=== PATIENT | male | born 1995 | race Caucasian/White ===

== ENCOUNTER → 2018-01-03 | Outpatient (CLI) | payer BC ==
[~2018-01-03] MED LIST: MOTRIN 600600 MG/TAB PO; NORCO 325 MG-51 TAB PO; PERCOCET 325 MG1 TA2 PO
== END ==
LOC: COL.RAD 07:59
DX: R10.11 Right upper quadrant pain (principal)

== ENCOUNTER → 2018-01-13 | Outpatient (CLI) | payer BC | LOC: COL.RAD 11:13 | DX: R10.31 Right lower quadrant pain (principal) ==